=== PATIENT | female | born 1945 | race Caucasian/White ===

== ENCOUNTER → 2018-04-02 | Outpatient (CLI) | payer MEDICARE, OTHER ==
[2015-10-30 15:45] VITALS: BP 115/60
[~2018-04-02] MED LIST: ASCO10002 PO; ASPI-482 PO; DULO30CA2 PO; ESOM40CA PO; FERR325T14 PO; HYDR-3165 PO; IBUP200T44 PO; LORA10TA68 PO; OLAN5TAB3 PO; PREG150C PO; RALO60TA PO; SUMA100T3 PO; [UNRECOGNIZED DRUG - CODE] IJ
--- NOTE | 2018-04-02 13:59 | RAD ---
PQRS Compliance statement: One or more of the following individualized dose reduction techniques were utilized for this examination: 1. Automated exposure control. 2. Adjustment of the mA and/or kV according to patient size. 3. Use of iterative reconstruction technique. 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 COMPARISON: 06/17/2005 FINDINGS: Limited evaluation of solid abdominal and pelvic organs due to lack of IV contrast. Heart is normal in size. No pericardial or pleural effusion. Mild bibasilar subsegmental atelectasis or scarring. Noncontrast appearance of the liver, spleen, pancreas, adrenals within normal limits. Numerous gallstones noted. No pericholecystic fluid or inflammatory changes. No nephrolithiasis or hydronephrosis. 8mm partially exophytic lesion is seen in the lateral aspect of the interpolar right kidney (series 2 image 81). 8 mm partially exophytic lesion is seen in the anterior lower right kidney (series 2 image 85) (. 9 mm partially exophytic high attenuating lesion in the inferior left kidney (series 2 image 88). No enlarged retroperitoneal or pelvic adenopathy. No free pelvic fluid or ascites. Laxity of anterior midline abdominal wall. Right lower quadrant ostomy is seen. Large amount of stool is seen in the colon. Lnyne's pouch is seen in the pelvis. Anteverted uterus. Urinary bladder is within normal limits. No pneumoperitoneum. No bowel wall thickening or surrounding inflammatory changes. No suspicious bony lesion. Grade 1 anterolisthesis of L4 over L5. Right L4 pars defect. IMPRESSION: Limited exam due to lack of IV and oral contrast for evaluation of stricture or solid organs. 1. Large amount of stool in the colon, patient may be constipated. 2. No perienteric or pericolonic inflammatory changes to suggest acute inflammatory bowel disease. 3. Bilateral indeterminate renal lesions most likely simple and minimally complicated cysts. Nonemergent MRI of the abdomen with IV contrast can be obtained for further evaluation. 4. Cholelithiasis without imaging evidence of acute cholecystitis. Electronically signed by: Earle Lopez DO (04/02/2018 1:56 PM) [id number]
== END | disposition home or self-care (01) ==
LOC: CT 12:11
PROVIDERS: ATTEND Internal Medicine Gastroenterology
DX: K80.20 Calculus of gallbladder without cholecystitis without obstruction (principal); M43.16 Spondylolisthesis, lumbar region
CPT/HCPCS: 74176

== ENCOUNTER → 2018-04-06 | Outpatient (CLI) | payer MEDICARE, OTHER ==
[2015-10-30 15:45] VITALS: BP 115/60
[~2018-04-06] MED LIST changes: +GADOBUTROL 7.5 MMOL/7.5 ML VIAL IV ONE
[2018-04-06 10:39] LABS: CREATININE 1.5 mg/dL (0.6-1.0); GFR 34.2
--- NOTE | 2018-04-06 16:50 | RAD ---
ABDOMEN WO/W CONTRAST Clinical Indication: BILATERAL RENAL LESIONS, ABNORMAL CT. Comparison: CT abdomen and pelvis without contrast, April 02, 2018. TECHNIQUE: Routine multiplanar multiple pulse sequence images of the abdomen are obtained before and after 7 cc Gadavist IV contrast. Findings: Hydropic gallbladder. There is cholelithiasis. No gallbladder wall thickening or pericholecystic fluid. Extrahepatic duct is normal caliber. No evidence of choledocholithiasis. There is no fatty infiltration of the liver. The adrenal glands are normal. The pancreatic duct is normal. The pancreas is homogeneous. There are 2 nearly 1 cm in size cortical cysts in the upper pole of the right kidney. There are tiny bilateral cortical cysts. Subcentimeter cortical cyst lower pole of left kidney. None of these cysts enhance on postcontrast images. There is no hydronephrosis. There is a 1 cm partially exophytic lesion at the lateral lower pole of the right kidney that is T1 hyperintense and intermediate T2 signal but does not enhance on postcontrast images. There is a 0.7 cm partially exophytic lesion at the lower pole of the left kidney that is T1 hyperintense but does not enhance on postcontrast images. These lesions may be a hemorrhagic or proteinaceous cysts. Small amount of free fluid and edema just inferior to the tip of the right hepatic lobe. There is prominent stool filled colon in the right lower abdomen. Question uterine fibroid measuring 4.9 cm. IMPRESSION: 1. There are 2 small probable hemorrhagic or proteinaceous cysts, one in the lower pole of the right kidney and one in the left lower pole. There are other bilateral simple cortical cysts. 2. Cholelithiasis. 3. Question moderate-sized uterine fibroid. Electronically signed by: Luis A Rodrigues MD (04/06/2018 4:47 PM) [id number]
== END | disposition home or self-care (01) ==
LOC: MRI 14:25
PROVIDERS: ATTEND Internal Medicine Gastroenterology
DX: K80.20 Calculus of gallbladder without cholecystitis without obstruction (principal); N28.1 Cyst of kidney, acquired; K76.89 Other specified diseases of liver
CPT/HCPCS: 36415; 74183; 82565; A9585